=== PATIENT | female | born 1995 | race Caucasian/White ===

== ENCOUNTER 2018-05-06 01:07 | Emergency (ER) | payer OTHER ==
[~2018-05-06] VITALS: Ht 160 cm; Wt 68.0 kg
[~2018-05-06 01:07] MED LIST: AMO500 PO; ANTIVERT12.5 MG PO; BACTRIM DS1 TAB PO; CEL20 PO; CELEXA10 MG PO; LAC PO; LORAZEPAM0.5 MG PO; MECLIZINE12.5 M1 PO; METOPROLOL TART25 M1 PO; NEOMYCIN POLYMY OP; PRENATAL LOW IR1 TA1 PO; RANITIDINE HCL150 M1 PO; SYN25 PO; SYNTHROID0.025 MG PO; TESSALON PERLE100 MG PO
[2018-05-06 01:12] VITALS: Ht 160 cm; Wt 68.0 kg
[2018-05-06 02:10] LABS: BASOPHIL % 0.5 % (0-2); PLATELET COUNT 198 x10^3mcL (130-400)
[2018-05-06 02:24] LABS: CALCIUM 8.6 mg/dL (8.5-10.1); CARBON DIOXIDE 26.7 mmol/L (21-32); CHLORIDE SERUM 102 mmol/L (98-107); CREATININE SERUM 0.6 mg/dL (0.6-1.0); GFR1 > 60 mL/min; GLUCOSE SERUM 99 mg/dL (74-106); POTASSIUM SERUM 3.5 mmol/L (3.5-5.1); SODIUM SERUM 138 mmol/L (136-145)
[2018-05-06 02:28] LABS: AMPHETAMINE QUAL UR NONE DETECTED (See below)
[2018-05-06 03:26] VITALS: BP 106/56
== END 2018-05-06 03:26 | disposition home or self-care (01) ==
LOC: ED 01:07
PROVIDERS: Emergency Medicine
DX: R55 Syncope and collapse (principal); M79.10 Myalgia, unspecified site; R53.1 Weakness; R42 Dizziness and giddiness; Z88.8 Allergy status to other drugs, medicaments and biological substances; Z86.39 Personal history of other endocrine, nutritional and metabolic disease; Z98.890 Other specified postprocedural states
CPT/HCPCS: 36415

== ENCOUNTER 2018-12-23 02:11 | Emergency (ER) | payer OTHER ==
[~2018-12-23] VITALS: Ht 160 cm; Wt 78.0 kg
[2018-12-23 02:17] VITALS: Ht 160 cm; Wt 78.0 kg
[2018-12-23 05:32] VITALS: BP 128/81
== END 2018-12-23 05:32 | disposition home or self-care (01) ==
LOC: ED 02:11
DX: S90.861A Insect bite (nonvenomous), right foot, initial encounter (principal); Z88.8 Allergy status to other drugs, medicaments and biological substances; Z98.890 Other specified postprocedural states; W57.XXXA Bitten or stung by nonvenomous insect and other nonvenomous arthropods, initial encounter; Y93.89 Activity, other specified; Y92.89 Other specified places as the place of occurrence of the external cause; Y99.8 Other external cause status

== ENCOUNTER 2019-02-13 19:23 | Emergency (ER) | payer OTHER ==
[~2019-02-13] VITALS: Ht 160 cm; Wt 77.6 kg
[2019-02-13 19:26] VITALS: Ht 160 cm; Wt 77.6 kg
[2019-02-13 20:57] VITALS: BP 139/89
== END 2019-02-13 20:57 | disposition home or self-care (01) ==
LOC: ED 19:23
DX: J03.90 Acute tonsillitis, unspecified (principal); J06.9 Acute upper respiratory infection, unspecified; N91.2 Amenorrhea, unspecified; Z88.8 Allergy status to other drugs, medicaments and biological substances; Z88.1 Allergy status to other antibiotic agents

== ENCOUNTER 2019-03-15 00:30 | Emergency (ER) | payer OTHER ==
[~2019-03-15] VITALS: Ht 160 cm; Wt 78.5 kg
[2019-03-15 00:48] VITALS: Ht 160 cm; Wt 78.5 kg
[2019-03-15 01:07] LABS: BASOPHIL % 0.1 % (0-2); PLATELET COUNT 235 x10^3mcL (130-400)
[2019-03-15 01:12] LABS: RED CELL DISTRIBUTION WIDTH 16.2 % (11.5-14.5)
[2019-03-15 01:19] LABS: CALCIUM 8.1 mg/dL (8.5-10.1); CARBON DIOXIDE 28.7 mmol/L (21-32); CHLORIDE SERUM 104 mmol/L (98-107); CREATININE SERUM 0.7 mg/dL (0.6-1.0); GFR1 > 60 mL/min; GLUCOSE SERUM 111 mg/dL (74-106); POTASSIUM SERUM 3.6 mmol/L (3.5-5.1); SODIUM SERUM 141 mmol/L (136-145)
[2019-03-15 01:24] LABS: ALBUMIN 3.6 g/dL (3.4-5.0); ALKALINE PHOSPHATASE 84 U/L (46-116); ALT/SGPT 23 U/L (14-59); AST/SGOT 10 U/L (15-37); BILIRUBIN TOTAL 0.29 mg/dL (0.20-1.00); LIPASE 118 IU/L (73-393)
[2019-03-15 02:11] VITALS: BP 117/69
== END 2019-03-15 02:11 | disposition home or self-care (01) ==
LOC: ED 00:30
PROVIDERS: Emergency Medicine
DX: R19.7 Diarrhea, unspecified (principal); R10.9 Unspecified abdominal pain; R63.0 Anorexia; Z88.8 Allergy status to other drugs, medicaments and biological substances; Z88.1 Allergy status to other antibiotic agents; Z98.890 Other specified postprocedural states
CPT/HCPCS: 36415; J1885

== ENCOUNTER 2019-09-15 21:18 | Emergency (ER) | payer OTHER ==
[~2019-09-15] VITALS: Ht 160 cm; Wt 77.6 kg
[2019-09-15 21:23] VITALS: Ht 160 cm; Wt 77.6 kg
[2019-09-15 22:07] LABS: BASOPHIL % 0.6 % (0-2); PLATELET COUNT 219 x10^3mcL (130-400); RED CELL DISTRIBUTION WIDTH 16.4 % (11.5-14.5)
[2019-09-15 22:11] LABS: CALCIUM 8.8 mg/dL (8.5-10.1); CARBON DIOXIDE 27.7 mmol/L (21-32); CHLORIDE SERUM 103 mmol/L (98-107); CREATININE SERUM 0.6 mg/dL (0.6-1.0); GFR1 > 60 mL/min; GLUCOSE SERUM 109 mg/dL (74-106); SODIUM SERUM 139 mmol/L (136-145)
[2019-09-15 22:15] LABS: ALBUMIN 3.8 g/dL (3.4-5.0); ALKALINE PHOSPHATASE 76 U/L (46-116); ALT/SGPT 26 U/L (14-59); AST/SGOT 16 U/L (15-37); BILIRUBIN TOTAL 0.2 mg/dL (0.20-1.00); CHOLESTEROL 196 mg/dL (<200); CHOLESTEROL/HDL RATIO 3.7; HDL CHOLESTEROL 53 mg/dL (40-60); LIPASE 130 IU/L (73-393); TOTAL PROTEIN, SERUM 8.1 g/dL (6.4-8.2); TRIGLYCERIDES 73 mg/dL (<150)
[2019-09-15 23:21] VITALS: BP 109/64
== END 2019-09-15 23:05 | disposition home or self-care (01) ==
LOC: ED 21:18
PROVIDERS: Specialist
DX: R07.89 Other chest pain (principal); Z88.8 Allergy status to other drugs, medicaments and biological substances
CPT/HCPCS: 36415; 83880; Q0092